=== PATIENT | female | born 1990 | race African-American/Black ===

== ENCOUNTER 2019-11-02 10:56 | Emergency (ER) | payer SELFPAY ==
[~2019-11-02] VITALS: Ht 167.6 cm; Wt 123.0 kg
[2019-11-02 13:26] LABS: BASOPHILS % 1.2 % (0.0-2.0); EOSINOPHILS % 2.4 % (0.0-5.0); HEMATOCRIT. 39.1 % (36.0-48.0); HEMOGLOBIN. 13.4 g/dL (12.0-16.0); LYMPHOCYTES % 24.1 % (20.0-50.0); MEAN CORPUSCULAR HEMOGLOBIN 27.4 pg (28.0-32.0); MEAN CORPUSCULAR VOLUME 80.1 fL (81.0-99.0); MEAN PLATELET VOLUME 7.5 fl (7.4-10.4); MONOCYTES % 7.4 % (2.0-8.0); NEUTROPHILS % 64.9 % (40.0-76.0); PLATELET 373 x1000/uL (130-400); RED BLOOD CELL COUNT 4.89 mill/uL (4.2-5.4)
[2019-11-02 13:32] LABS: CHLORIDE 106 mEq/L (98-107)
[2019-11-02 13:40] LABS: INR 0.9; PROTHROMBIN TIME 10.2 sec (9.6-11.0)
[2019-11-02 13:55] LABS: B-HCG QUANTITATIVE 3355 mIU/mL (<3)
[2019-11-02 15:38] LABS: CLARITY URINE CLEAR (CLEAR); COLOR URINE YELLOW (YELLOW); KETONES URINE NEGATIVE (NEGATIVE); LEUKOCYTE ESTERASE URINE 1+ (NEGATIVE); NITRITE URINE POSITIVE (NEGATIVE); OCCULT BLOOD URINE NEGATIVE (NEGATIVE); PH URINE 5.5 (4.5-8.0); PROTEIN URINE NEGATIVE (NEGATIVE); SPECIFIC GRAVITY URINE 1.014 (1.005-1.030)
[2019-11-02 15:49] VITALS: BP 135/91
== END 2019-11-02 16:36 | disposition home or self-care (01) ==
LOC: ER 10:56
DX: O20.0 Threatened abortion (principal); O23.41 Unspecified infection of urinary tract in pregnancy, first trimester; O26.891 Other specified pregnancy related conditions, first trimester; R03.0 Elevated blood-pressure reading, without diagnosis of hypertension; Z3A.01 Less than 8 weeks gestation of pregnancy
CPT/HCPCS: 36415; 76801; 80053; 81003; 81025; 84702; 85025; 86850; 86900; 99284

== ENCOUNTER 2020-12-21 06:53 | Inpatient (IN) | payer MEDICAID ==
[~2020-12-21] VITALS: Ht 170.2 cm; Wt 131.5 kg
[2020-12-21] MEDS ORDERED: LIDOCAINE HCL 1% 20ML VIAL (Pyxis) INJ INFIL SCH (08:15)
[2020-12-21] MEDS ORDERED: METHYLERGONOVINE MALEATE 0.2 MG/ML IM PRN (08:15)
[2020-12-21] MEDS ORDERED: NALOXONE HCL 0.4 MG/ML 1ML VIAL IM PRN (08:15)
[2020-12-21] MEDS ORDERED: PENICILLIN G POTASSIUM 5 MMU in DEXT 5% WATER 100 ML IV SCH (09:00)
[2020-12-21] MEDS: LACTATED RINGERS 1,000 ML IV SCH ×2 (09:03→20:43)
[2020-12-21] MEDS ORDERED: ROPIVACAINE HCL/PF EPIDURAL 200 ML EPI SCH (09:15)
[2020-12-21 09:29] LABS: BASOPHILS % 0.8 % (0.0-2.0); EOSINOPHILS % 1.3 % (0.0-5.0); HEMATOCRIT. 31.7 % (36.0-48.0); HEMOGLOBIN. 10.8 g/dL (12.0-16.0); LYMPHOCYTES % 16.5 % (20.0-50.0); MEAN CORPUSCULAR HEMOGLOBIN 25.8 pg (28.0-32.0); MEAN CORPUSCULAR VOLUME 76.2 fL (81.0-99.0); MEAN PLATELET VOLUME 7.3 fl (7.4-10.4); MONOCYTES % 6.3 % (2.0-8.0); NEUTROPHILS % 75.1 % (40.0-76.0); PLATELET 349 x1000/uL (130-400); RED BLOOD CELL COUNT 4.16 mill/uL (4.2-5.4); RED CELL DISTRIBUTION WIDTH 15.8 % (11.6-14.6)
[2020-12-21 09:32] LABS: CLARITY URINE TURBID (CLEAR); COLOR URINE YELLOW (YELLOW); KETONES URINE NEGATIVE (NEGATIVE); LEUKOCYTE ESTERASE URINE TRACE (NEGATIVE); NITRITE URINE NEGATIVE (NEGATIVE); OCCULT BLOOD URINE 3+ (NEGATIVE); PH URINE 7.5 (4.5-8.0); PROTEIN URINE 2+ (NEGATIVE); SPECIFIC GRAVITY URINE 1.009 (1.005-1.030)
[2020-12-21 09:37] LABS: CHLORIDE 107 mEq/L (98-107)
[2020-12-21 09:49] LABS: *BENZODIAZEPINES SCREEN URINE NEGATIVE (NEGATIVE); *COCAINE SCREEN URINE NEGATIVE (NEGATIVE); CANNABINOID URINE SCREEN NEGATIVE (NEGATIVE); METHADONE URINE SCREEN NEGATIVE (NEGATIVE); OPIATES URINE SCREEN NEGATIVE (NEGATIVE); PHENCYCLIDINE URINE SCREEN NEGATIVE (NEGATIVE)
[2020-12-21 09:50] LABS: *AMPHETAMINES SCREEN URINE NEGATIVE (NEGATIVE); *BARBITURATES SCREEN URINE NEGATIVE (NEGATIVE)
[2020-12-21 10:11] LABS: INR 0.9; PARTIAL THROMBOPLASTIN TIME 24.2 sec (23.4-31.0); PROTHROMBIN TIME 9.8 sec (9.6-11.0)
[2020-12-21] MEDS: DEXT 5%/LR + PITOCIN 20UNITS/L 1,000 ML IV SCH (11:18)
[2020-12-21] MEDS ORDERED: PENICILLIN G POTASSIUM 2.5 MMU in DEXTROSE 5% WATER 50 ML IV SCH ×2 (13:00→14:00)
[2020-12-21 14:29] LABS: HEPATITIS B SURFACE ANTIGEN NEGATIVE
[2020-12-21] MEDS: BUTORPHANOL TARTRATE 2 MG/ML VIAL IV PRN ×2 (16:14→19:45)
[2020-12-21] MEDS ORDERED: LABETALOL HCL 5MG/ML VIAL 20ML IV PRN ×6 (17:00→23:45)
[2020-12-21] MEDS ORDERED: POTASSIUM CHLORIDE 20MEQ/PACKET PO NR (18:00)
[2020-12-21] MEDS: ONDANSETRON HCL 4MG/2ML INJ IV PRN (19:45)
[2020-12-21] MEDS ORDERED: MAGNESIUM 4 G PREMIX 100 ML IV SCH (21:00)
[2020-12-21] MEDS: MAGNESIUM 20 G PREMIX (L & D) 500 ML IV SCH (21:13)
[2020-12-21] MEDS ORDERED: HYDRALAZINE 20MG/ML VIAL IV PRN ×3 (23:45)
[2020-12-21] MEDS ORDERED: MAGNESIUM 20 G PREMIX (L & D) 500 ML IV SCH (23:45)
[2020-12-21] MEDS ORDERED: FENTANYL CITRATE/PF 50MCG/ML 2ML VIAL ONE (23:57)
[2020-12-22] MEDS: ONDANSETRON HCL 4MG/2ML INJ IV PRN (02:43)
[2020-12-22] MEDS ORDERED: FENTANYL CITRATE/PF 50MCG/ML 2ML VIAL ONE ×2 (03:01→07:39)
[2020-12-22] MEDS ORDERED: METOCLOPRAMIDE HCL 10MG/2ML VIAL ONE (04:59)
[2020-12-22] MEDS ORDERED: PENICILLIN G POTASSIUM 2.5 MMU in DEXTROSE 5% WATER 50 ML IV SCH (07:00)
[2020-12-22] MEDS ORDERED: HYDRALAZINE 20MG/ML VIAL IV PRN ×3 (07:45)
[2020-12-22] MEDS ORDERED: LABETALOL HCL 5MG/ML VIAL 20ML IV PRN ×2 (07:45)
[2020-12-22] MEDS ORDERED: CARBOPROST TROMETHAMINE 250 MCG/ML AMPUL IM ONE (08:06)
[2020-12-22] MEDS: LACTATED RINGERS 1,000 ML IV SCH (08:43)
[2020-12-22] MEDS ORDERED: CARBOPROST TROMETHAMINE 250 MCG/ML AMPUL IM NR (09:30)
[2020-12-22] MEDS: DEXT 5%/LR + PITOCIN 20UNITS/L 1,000 ML IV SCH (09:41)
[2020-12-22] MEDS ORDERED: IBUPROFEN 400MG TABLET PO PRN (09:45)
[2020-12-22] MEDS ORDERED: BENZOCAINE/LANOLIN/ALOE VERA SPRAY TOP PRN (09:45)
[2020-12-22] MEDS ORDERED: DEXT 5%/LR + PITOCIN 20UNITS/L 1,000 ML IV SCH (09:45)
[2020-12-22] MEDS ORDERED: RHO(D) IMMUNE GLOBULIN 300 MCG/SYR IM PRN (09:45)
[2020-12-22] MEDS ORDERED: MAGNESIUM 20 G PREMIX (L & D) 500 ML IV SCH (09:45)
[2020-12-22] MEDS ORDERED: MISOPROSTOL 200MCG TABLET PO SCH (10:00)
[2020-12-22 12:00] VITALS: BP 125/86
[2020-12-22] MEDS: IBUPROFEN 800MG TABLET PO PRN ×2 (12:57→23:03)
[2020-12-22] MEDS: MAGNESIUM 20 G PREMIX (L & D) 500 ML IV SCH (14:31)
[2020-12-22 14:55] VITALS: BP 131/84
[2020-12-22 18:00] VITALS: BP 130/81
[2020-12-22 22:00] VITALS: BP 135/85
[2020-12-23] VITALS: BP 128/82
[2020-12-23] MEDS: LACTATED RINGERS 1,000 ML IV SCH (04:14)
[2020-12-23 04:40] VITALS: BP 128/82
[2020-12-23 04:44] LABS: BASOPHILS % 0.3 % (0.0-2.0); HEMATOCRIT. 22.8 % (36.0-48.0); HEMOGLOBIN. 7.7 g/dL (12.0-16.0); LYMPHOCYTES % 14.7 % (20.0-50.0); MEAN CORPUSCULAR HEMOGLOBIN 25.8 pg (28.0-32.0); MEAN CORPUSCULAR VOLUME 76.1 fL (81.0-99.0); MEAN PLATELET VOLUME 7.2 fl (7.4-10.4); MONOCYTES % 5.3 % (2.0-8.0); NEUTROPHILS % 78.7 % (40.0-76.0); PLATELET 308 x1000/uL (130-400); RED BLOOD CELL COUNT 2.99 mill/uL (4.2-5.4); RED CELL DISTRIBUTION WIDTH 16.2 % (11.6-14.6)
[2020-12-23 07:28] VITALS: BP 134/83
[2020-12-23] MEDS: IBUPROFEN 800MG TABLET PO PRN ×2 (08:23→19:24)
[2020-12-23 15:18] VITALS: BP 129/69
[2020-12-23 20:00] VITALS: BP 133/86
[2020-12-24] VITALS: BP 117/72
[2020-12-24] MEDS ORDERED: IBUP-2030 PO (05:07)
[2020-12-24 07:46] LABS: BASOPHILS % 0.8 % (0.0-2.0); EOSINOPHILS % 1.3 % (0.0-5.0); HEMATOCRIT. 23.1 % (36.0-48.0); HEMOGLOBIN. 7.7 g/dL (12.0-16.0); LYMPHOCYTES % 11.8 % (20.0-50.0); MEAN CORPUSCULAR HEMOGLOBIN 25.7 pg (28.0-32.0); MEAN CORPUSCULAR VOLUME 76.8 fL (81.0-99.0); MEAN PLATELET VOLUME 7.2 fl (7.4-10.4); MONOCYTES % 5.4 % (2.0-8.0); NEUTROPHILS % 80.7 % (40.0-76.0); PLATELET 325 x1000/uL (130-400); RED BLOOD CELL COUNT 3.01 mill/uL (4.2-5.4)
[2020-12-24 08:33] VITALS: BP 135/85
[2020-12-24] MEDS: IBUPROFEN 800MG TABLET PO PRN (11:01)
== END 2020-12-24 12:20 | disposition home or self-care (01) | DRG 560 ==
LOC: 8 EST LDRP 06:53 → OBSVTOIN 06:53 → 8EST 12-22 11:56
PROVIDERS: ADMIT Specialist; ATTEND Specialist
PROC: 10E0XZZ Delivery of Products of Conception, External Approach (ICD-10-PCS; principal; 2020-12-22)
PROC: 3E0R3BZ Introduction of Anesthetic Agent into Spinal Canal, Percutaneous Approach (ICD-10-PCS; 2020-12-22)
PROC: 00HU33Z Insertion of Infusion Device into Spinal Canal, Percutaneous Approach (ICD-10-PCS; 2020-12-22)
PROC: 0HQ9XZZ Repair Perineum Skin, External Approach (ICD-10-PCS; 2020-12-22)
DX: O13.4 Gestational [pregnancy-induced] hypertension without significant proteinuria, complicating childbirth (principal); E66.01 Morbid (severe) obesity due to excess calories; O99.12 Other diseases of the blood and blood-forming organs and certain disorders involving the immune mechanism complicating childbirth; Z37.0 Single live birth; O99.02 Anemia complicating childbirth; D72.829 Elevated white blood cell count, unspecified; O99.214 Obesity complicating childbirth; Z3A.39 39 weeks gestation of pregnancy; O70.0 First degree perineal laceration during delivery
CPT/HCPCS: 36415; 76805; 76818; 80053; 80305; 81003; 83735; 84550; 85025; 85384; 86592; 86703; 86762; 86850; 86900; 86920; 87340; 99281; J0360; J0595; J2405; J2540; J2590; J2765; J2795; J3010; J3475; J3490; J7060; J7120; A4315

== ENCOUNTER 2024-02-01 07:39 | Emergency (ER) | payer MEDICAID ==
[~2024-02-01] VITALS: Ht 170.2 cm; Wt 125.6 kg
[~2024-02-01 07:39] MED LIST: IBUP-2030 PO
[2024-02-01 07:47] VITALS: O2SAT 100
[2024-02-01 08:20] LABS: BASOPHILS % 0.8 % (0.0-2.0); DIFFERENTIAL COMMENT 0; EOSINOPHILS % 2.7 % (0.0-5.0); HEMATOCRIT. 35.8 % (36.0-48.0); HEMOGLOBIN. 12.2 g/dL (12.0-16.0); LYMPHOCYTES % 16.6 % (20.0-50.0); MEAN CORPUSCULAR HEMOGLOBIN 26.1 pg (28.0-32.0); MEAN CORPUSCULAR HGB CONC 33.9 g/dL (31.0-37.0); MEAN CORPUSCULAR VOLUME 76.9 fL (81.0-99.0); MEAN PLATELET VOLUME 7.3 fl (7.4-10.4); MONOCYTES % 4.9 % (2.0-8.0); PLATELET 437 x1000/uL (130-400); RED BLOOD CELL COUNT 4.66 mill/uL (4.2-5.4); WHITE BLOOD COUNT 8.4 x1000/uL (4.5-11.0)
[2024-02-01 08:27] LABS: CHLORIDE 106 mEq/L (98-107); POTASSIUM 3.8 mEq/L (3.5-5.1); SODIUM 139 mEq/L (136-145)
[2024-02-01 08:28] LABS: CALCIUM 9.6 mg/dL (8.7-10.4); CARBON DIOXIDE 28 mEq/L (21-32)
[2024-02-01 08:33] LABS: CREATININE 0.8 mg/dL (0.6-1.0); GLUCOSE 115 mg/dL (70-105)
[2024-02-01 08:35] LABS: ALANINE AMINOTRANSFERASE 9 IU/L (10-49); ALBUMIN 4.1 g/dL (3.2-4.8); ASPARTATE AMINOTRANSFERASE 14 IU/L (<34)
[2024-02-01 08:36] LABS: BILIRUBIN DIRECT 0.1 mg/dL (<=3.0); BILIRUBIN TOTAL 0.4 mg/dL (0.1-1.0); PROTEIN TOTAL 7.4 g/dL (6.0-8.3)
[2024-02-01 08:41] LABS: TROPONIN I HIGH SENSITIVITY < 4 ng/L (3.0-34); UREA NITROGEN BLOOD < 5 mg/dL (9-23)
[2024-02-01] MEDS: FAMOTIDINE 20MG TABLET PO ONE (09:27)
[2024-02-01] MEDS: ACETAMINOPHEN 325MG TABLET PO ONE (09:28)
[2024-02-01 09:35] LABS: CLARITY URINE CLEAR (CLEAR); COLOR URINE YELLOW (YELLOW); GLUCOSE URINE NEGATIVE (NEGATIVE); KETONES URINE NEGATIVE (NEGATIVE); PROTEIN URINE NEGATIVE (NEGATIVE)
[2024-02-01 09:36] LABS: LEUKOCYTE ESTERASE URINE NEGATIVE (NEGATIVE); NITRITE URINE NEGATIVE (NEGATIVE); OCCULT BLOOD URINE 2+ (NEGATIVE); UROBILINOGEN URINE 0.2 E.U./dL (0.2-1.0)
[2024-02-01 09:42] LABS: SQUAMOUS EPITHELIAL CELL URINE 1+ /lpf (RARE/1+); WBC URINE 0-2 /hpf (0-2)
[2024-02-01 09:43] LABS: BACTERIA URINE TRACE; YEAST URINE NONE SEEN
[2024-02-01 10:17] VITALS: TEMP 98.6
[2024-02-01] MEDS ORDERED: PROT20 MT (10:17)
[2024-02-01] MEDS ORDERED: ACET-2708 MT (10:17)
[2024-02-01 10:18] VITALS: BP 131/93; PULSE 71; RESP 18
[2024-02-01] MEDS: IBUPROFEN 800MG TABLET PO ONE (10:18)
[2024-02-01] MEDS: ONDANSETRON 4MG ODT PO ONE (10:19)
== END 2024-02-01 10:32 | disposition home or self-care (01) ==
LOC: ER 07:39
DX: K80.80 Other cholelithiasis without obstruction (principal)
CPT/HCPCS: 99285; 76705; 71045; 80076; 80048; 81003; 81025; 83690; 85025; 84484; 36415; 93005; Q0162